=== PATIENT | male | born 1980 | race African-American/Black ===

== ENCOUNTER 2022-07-01 10:42 | Outpatient (CLI) | payer OTHER, SELFPAY ==
[2022-07-02 10:47] LABS: Basophils Absolute Auto 0.1 K/mm3 (0.0-0.1); Basophils Percent Auto 0.6 % (0.2-1.2); Eosinophils Absolute Auto 0.1 K/mm3 (0-0.3); Eosinophils Percent Auto 1.4 % (0-4.4); Hematocrit 45.3 % (42.0-52.0); Hemoglobin 15.1 g/dL (14.0-18.0); Immature Granulocyte Absolute 0.03 K/mm3 (0.00-0.031); Immature Granulocyte Percent A 0.3 % (0-0.5); Lymphocytes Absolute Auto 2.75 K/mm3 (0.9-3.2); Lymphocytes Percent Auto 29.7 % (18.3-44.2); Mean Corpuscular HGB Conc 33.3 g/dl (32-36); Mean Corpuscular Hemoglobin 31.3 pg (26-34); Mean Platelet Volume 9.3 fl (7.4-10.4); Monocytes Absolute Auto 0.7 K/mm3 (0.1-0.6); Monocytes Percent Auto 7.2 % (2.6-8.5); Neutrophils Absolute Auto 5.6 K/mm3 (1.3-6.7); Neutrophils Percent Auto 60.8 % (45.5-73.1); Platelet Count Result 303 k/mm3 (150-375); Red Blood Count 4.82 M/mm3 (4.6-6.20); Red Cell Distribution Width 12.6 % (11.5-14.5); White Blood Count 9.3 K/mm3 (4.5-10.0)
[2022-07-02 10:55] LABS: Alanine Aminotransferase 25 U/L (6-50); Alkaline Phosphatase 60 U/L (38-126); Anion Gap 7 mmol/L (8-16); Aspartate Amino Transferase 42 U/L (17-59); Bilirubin,Total 0.8 mg/dL (0.2-1.3); Blood Urea Nitrogen 15 mg/dL (9-20); Calcium 8.8 mg/dL (8.4-10.2); Carbon Dioxide 27 mmol/L (22-30); Chloride 105 mmol/L (98-107); Cholesterol 241 mg/dL (0-200); Estimated Glomerular Filt Rate > 60; Glucose 96 mg/dL (65-110); HDL Direct 39 mg/dL; Potassium 4.4 mmol/L (3.4-5.0); Sodium 139 mmol/L (137-145); Triglycerides 89 mg/dL (<150)
[2022-07-02 11:06] LABS: LDL Cholesterol Direct 160 mg/dL
== END 2022-07-01 10:43 | disposition home or self-care (01) ==
LOC: ANHGOSHLAB 10:46
PROVIDERS: PCP Emergency Medicine; Visit Provider Emergency Medicine
DX: Z00.00 Encounter for general adult medical examination without abnormal findings (principal)
CPT/HCPCS: 36415; 80053; 80061; 85025

== ENCOUNTER 2023-09-21 14:35 | Outpatient (CLI) | payer OTHER, SELFPAY ==
[2023-09-21 19:30] LABS: Alanine Aminotransferase 40 U/L (6-50); Alkaline Phosphatase 64 U/L (38-126); Anion Gap 3 mmol/L (8-16); Aspartate Amino Transferase 63 U/L (17-59); Blood Urea Nitrogen 11 mg/dL (9-20); Calcium 9.3 mg/dL (8.4-10.2); Carbon Dioxide 28 mmol/L (22-30); Chloride 104 mmol/L (98-107); Cholesterol 204 mg/dL (0-200); Estimated Glomerular Filt Rate > 60; Glucose 95 mg/dL (65-110); HDL Direct 35 mg/dL; Potassium 4.1 mmol/L (3.4-5.0); Sodium 135 mmol/L (137-145); Triglycerides 91 mg/dL (<150)
[2023-09-21 19:42] LABS: LDL Cholesterol Direct 152 mg/dL
[2023-09-23 13:28] LABS: Hemoglobin A1C 5.7 % (<5.7)
== END 2023-09-21 14:36 | disposition home or self-care (01) ==
LOC: ANHGOSHLAB 14:36
PROVIDERS: PCP Emergency Medicine; Visit Provider Emergency Medicine
DX: E78.00 Pure hypercholesterolemia, unspecified (principal)
CPT/HCPCS: 36415; 80053; 80061; 83036

== ENCOUNTER 2024-12-25 02:28 | Emergency (ER) | payer OTHER, SELFPAY ==
--- NOTE | ~2024-12-25 | XR_ITS ---
Portable chest x-ray Comparison: Shortness of breath Clinical History: None Findings: Patchy left lower lobe airspace disease compatible with pneumonia. Right lung clear. Card iomediastinal silhouette is unremarkable. Bones and soft tissues are unremarkable. Impression: Patchy left lower lobe pneumonia. Reviewed, dictated and finalized at [facility]. Impression: Patchy left lower lobe pneumonia.
[2024-12-25 02:35] VITALS: BP 127/82; PULSE 83; RESP 20; TEMP 36.6; O2SAT 96
[2024-12-25 02:39] VITALS: O2SAT 98
--- NOTE | 2024-12-25 02:44 | ED_ITS ---
HPI - General Adult General Chief complaint: Upper Respiratory Infection Stated complaint: congestion when laying down Time Seen by Provider: 12/25/24 02:32 History of Present Illness HPI narrative: 44-year-old male presents to the emergency department for evaluation for worsening cough and congestion. Patient states over last 3 days he has had worsening cough congestion. Patient states he was at urgent care today and they started him on azithromycin and benzonatate. Patient presented to the emergency department for evaluation for worsening cough. Related Data Allergies Allergy/AdvReac Type Severity Reaction Status Date / Time No Known Allergies Allergy Verified 12/25/24 02:29 Review of Systems Review of Systems: All systems reviewed & are unremarkable except as noted in HPI and below PMFSH Social History Social History Smoking status: Never smoker Alcohol intake: unknown Lack of Transportation: No Lack of Food: Never True Current Housing: I Have Housing Concerned About Future Housing: No Difficulty Paying Gas/Electric Bills: No Difficulty Paying for Meds: No Currently Unemployed: No Education: Decline to Answer Difficulty w/ Childcare or Family Care: No Exam Narrative: APPEARANCE: Well appearing, no pain, no distress, well-nourished. HEAD: normocephalic, atraumatic. EYES: PERRLA/EOMI, conjunctivae clear. NOSE: Normal no drainage EARS:TMS clear with good light reflex. THROAT: Pharynx clear, no exudate. NECK: Supple. No adenopathy, no masses. RESPIRATORY: Airway patent, respirations nonlabored. Clear to auscultation bilaterally, no rales, rhonchi, wheezing. CARDIOVASCULAR: Regular rate and rhythm without murmurs rubs or gallops. ABDOMINAL: Soft, nontender, nondistended, normal bowel sounds MUSCULOSKELETAL: Moves all extremities. Strength/ROM intact, No edema, No calf tenderness. NEURO: Alert. Cranial nerves II through XII intact. Good gait. Good coordination SKIN: Warm, dry. Normal Color Course Vital Signs Vital signs: Vital Signs Temperature 97.8 F 12/25/24 02:35 Pulse Rate 83 12/25/24 02:35 Respiratory Rate 20 12/25/24 02:35 Blood Pressure 127/82 12/25/24 02:35 Pulse Oximetry 96 12/25/24 02:35 Oxygen Delivery Room Air 12/25/24 02:35 Temperature 97.8 F 12/25/24 02:35 Pulse Rate 79 12/25/24 05:06 Respiratory Rate 17 12/25/24 05:06 Blood Pressure 123/83 12/25/24 05:06 Pulse Oximetry 97 12/25/24 05:06 Oxygen Delivery Room Air 12/25/24 02:39 Medical Decision Making MDM Narrative Medical decision making narrative: 44-year-old male presents emergency department for evaluation for persistent cough. Chest x-ray was concerning for pneumonia. Patient is currently on a zithromycin and patient was started on additional Augmentin. Patient is on bed today but patient was provided additional Tylenol with codeine for further cough suppression. Patient family updated the results of the workup and they are comfortable the plan for discharge and close follow-up. They also educated on reasons to return to the emergency department. Differential Diagnosis Differential Diagnosis: COVID flu RSV influenza a, pneumonia Vital Signs Vital Signs: Vital Signs Temperature 97.8 F 12/25/24 02:35 Pulse Rate 83 12/25/24 02:35 Respiratory Rate 20 12/25/24 02:35 Blood Pressure 127/82 12/25/24 02:35 Pulse Oximetry 96 12/25/24 02:35 Oxygen Delivery Room Air 12/25/24 02:35 Temperature 97.8 F 12/25/24 02:35 Pulse Rate 79 12/25/24 05:06 Respiratory Rate 17 12/25/24 05:06 Blood Pressure 123/83 12/25/24 05:06 Pulse Oximetry 97 12/25/24 05:06 Oxygen Delivery Room Air 12/25/24 02:39 Lab Data Lab results reviewed: Yes I reviewed the patient's lab results. Labs: Lab Results 12/25/24 Range/Units 02:41 Influenza A (RT-PCR) Negative (Negative) Influenza B (RT-PCR) Negative (Negative) RSV (RT-PCR) Negative (Negative) SARS-CoV-2 RNA (RT-PCR) Negative (Negative) Imaging Data My impression: Chest x-ray: Left lower lobe pneumonia Discharge Plan Discharge Clinical Impression: Pneumonia Patient Disposition: Home Condition: Stable Instructions: Antibiotic Form, Pneumonia (ED) Additional Instructions: Continue take azithromycin as directed. Additionally start taking Augmentin and take until completed. Continue Tessalon Perles for cough. Additionally you being provided Tylenol 3 for cough suppression. Drink plenty of fluids. Have close follow-up with your primary care physician. Patient Language: [place] Prescriptions: New amoxicillin-pot clavulanate 875-125 mg tablet 1 tablet PO Q12H 7 Days Qty: 14 0RF acetaminophen-codeine 300-30 mg tablet 1 tablet PO Q12H PRN (Reason: cough) Qty: 10 0RF Follow-up/Referrals: Gilbert,Malick Wolff MD [Primary Care Provider] -
[2024-12-25 03:23] LABS: Influenza A QL RT-PCR Negative (Negative); Influenza B QL RT-PCR Negative (Negative); RSV RNA, RT-PCR Negative (Negative); SARS-CoV-2 RNA PCR Negative (Negative)
[2024-12-25] MEDS: ACETAMINOPHEN/CODEINE (*CRX) 300/30 MG TABLET 1 TAB PO (03:49)
[2024-12-25] MEDS: AMOXICILLIN/CLAVULANATE K 875-125 MG TAB 1 TABLET PO (03:50)
[2024-12-25 04:00] VITALS: BP 123/83; PULSE 79; RESP 17; O2SAT 97
[2024-12-25 05:06] VITALS: BP 123/83; PULSE 79; RESP 17; O2SAT 97
== END 2024-12-25 05:07 | disposition home or self-care (01) ==
PROVIDERS: Emergency Provider Emergency Medicine; PCP Emergency Medicine
DX: J18.9 Pneumonia, unspecified organism (principal); Z20.822 Contact with and (suspected) exposure to COVID-19
CPT/HCPCS: 71045; 87637; 99283; A9270